=== PATIENT | female | born 1935 | race Hispanic/Latino ===

== ENCOUNTER 2017-06-15 14:32 | Emergency (ER) | payer MEDICARE ==
[2017-06-15 15:07] LABS: #Lymphocytes 0.8 thou/uL (1.20-3.40); #Monocytes 0.3 thou/uL (0.11-0.59); %Basophils 0.8 % (0.0-1.0); %Lymphocytes 19.6 % (21.0-51.0); %Monocytes 6.7 % (0.0-10.0); Hemoglobin 9.6 g/dL (12.0-16.0); Mean Corpuscular HGB CONC 32.1 g/dL (32.0-36.0); Mean Corpuscular Hemoglobin 32.1 pg (27.0-31.0); Mean Platelet Volume 7.7 fL (7.4-10.4); Platelet Count 177 thou/uL (130-400); RBC Distribution Width 15.1 % (11.5-14.5); Red Blood Cell (RBC) Count 2.99 mill/uL (4.20-5.40); White Blood Cell (WBC) Count 4.2 thou/uL (4.8-10.8)
--- NOTE | 2017-06-15 15:20 | RAD ---
PORTABLE CHEST: Comparison: 01-01-06, 02-27-10 FINDINGS: Portable upright chest demonstrates a left sided transvenous defibrillator unchanged in position. The re is cardiomegaly. Atherosclerosis of the aorta. Pulmonary vessels and hilum are normal. Small right sided pleural effusion with adjacent parenchymal changes. No left sided pleural effusion. There is h yperinflation. Adequate aeration in the upper lungs. No pneumothorax. IMPRESSION: 1. Pleural effusion and parenchymal changes in the right lung base. 2. Cardiomegaly. 3. Atherosclerosis. 4. Congestive heart failure. POS: [facility]
[2017-06-15 15:31] LABS: ALT (SGPT) 11 U/L (8-55); AST (SGOT) 16 U/L (5-34); Albumin 3.8 g/dL (3.4-4.8); Alkaline Phosphatase 60 U/L (40-150); Anion Gap 12 mmol/L (10-20); BUN (Urea Nitrogen) 22 mg/dL (9.8-20.1); Bilirubin, Total 0.4 mg/dL (0.2-1.2); CK (CPK) 46 U/L (29-168); Calc. Creatinine Clearance 0 mL/min (70-130); Calcium 8.3 mg/dL (7.8-10.44); Carbon Dioxide 21 mmol/L (23-31); Chloride 108 mmol/L (98-107); Estimated GFR-MDRD 49; Globulin 2.9 g/dL (2.4-3.5); Glucose 115 mg/dL (83-110); Lipase 65 U/L (8-78); Potassium 4.5 mmol/L (3.5-5.1); Protein, Total 6.7 g/dL (6.0-8.3); Sodium 136 mmol/L (136-145)
[2017-06-15 15:36] LABS: CKMB 1.6 ng/mL (0-6.6); Troponin I Less than 0.010 ng/mL (< 0.028)
[2017-06-15] MEDS ORDERED: Furosemide 20 MG/2 ML VIAL ONE (16:26)
== END 2017-06-15 16:31 | disposition home or self-care (01) ==
LOC: ERS 14:32
DX: I11.0 Hypertensive heart disease with heart failure (principal); I50.9 Heart failure, unspecified; E11.9 Type 2 diabetes mellitus without complications; E78.5 Hyperlipidemia, unspecified
CPT/HCPCS: 36415; 71045; 80048; 82553; 83690; 83880; 84484; 85025; 93005; 96374; J1940

== ENCOUNTER 2017-08-28 20:36 | Inpatient (IN) | payer MEDICARE ==
[2017-08-28 21:09] LABS: #Eosinphils 0.1 thou/uL (0.0-0.7); #Lymphocytes 0.4 thou/uL (1.20-3.40); #Monocytes 0.3 thou/uL (0.11-0.59); %Basophils 1.1 % (0.0-1.0); %Eosinophils 1.4 % (0.0-10.0); %Lymphocytes 11.7 % (21.0-51.0); %Neutrophils 77.8 % (42.0-75.0); Hemoglobin 9.5 g/dL (12.0-16.0); Mean Corpuscular HGB CONC 32.8 g/dL (32.0-36.0); Mean Corpuscular Hemoglobin 32.3 pg (27.0-31.0); Mean Corpuscular Volume 98.5 fl (81.0-99.0); Mean Platelet Volume 7.7 fL (7.4-10.4); Platelet Count 145 thou/uL (130-400); RBC Distribution Width 15.5 % (11.5-14.5); Red Blood Cell (RBC) Count 2.93 mill/uL (4.20-5.40); White Blood Cell (WBC) Count 3.8 thou/uL (4.8-10.8)
[2017-08-28 21:28] LABS: ALT (SGPT) 8 U/L (8-55); AST (SGOT) 18 U/L (5-34); Albumin 3.9 g/dL (3.4-4.8); Alkaline Phosphatase 67 U/L (40-150); Anion Gap 12 mmol/L (10-20); BUN (Urea Nitrogen) 34 mg/dL (9.8-20.1); Bilirubin, Total 0.4 mg/dL (0.2-1.2); Calc. Creatinine Clearance 0 mL/min (70-130); Calcium 9.7 mg/dL (7.8-10.44); Carbon Dioxide 21 mmol/L (23-31); Chloride 96 mmol/L (98-107); Estimated GFR-MDRD 30; Globulin 2.7 g/dL (2.4-3.5); Glucose 102 mg/dL (83-110); Lipase 61 U/L (8-78); Magnesium 1.2 mg/dL (1.6-2.6); Potassium 5.8 mmol/L (3.5-5.1); Protein, Total 6.6 g/dL (6.0-8.3); Sodium 123 mmol/L (136-145)
[2017-08-28] MEDS ORDERED: Magnesium Sulfate 2 GM/100 ML BAG ONE (22:06)
[2017-08-28] MEDS ORDERED: Furosemide 40 MG/4 ML VIAL ONE (22:06)
[2017-08-28] MEDS ORDERED: Furosemide 20 MG/2 ML VIAL ONE (22:06)
--- NOTE | 2017-08-28 23:00 | RAD ---
PORTABLE CHEST ONE VIEW: 08/28/17 at 10:14 p.m. HISTORY: Chest pain. FINDINGS: Comparison made with exam of 06/15/17. The heart is enlarged. The aorta is tortuous. A left sided pacemaker device remains in place. No loba r consolidation, pneumothorax, braulio pulmonary edema or pleural effusions are seen. IMPRESSION: No acute process. POS: [facility]
[2017-08-29 00:49] LABS: Troponin I 0.011 ng/mL (< 0.028)
[2017-08-29] MEDS ORDERED: Ondansetron ODT 4 MG TAB SL PRN (01:17)
[2017-08-29] MEDS ORDERED: Ondansetron HCl/PF 4 MG/2 ML Vial IVP PRN (01:17)
[2017-08-29] MEDS ORDERED: Acetaminophen 325 MG TAB PO PRN (03:20)
[2017-08-29 03:54] LABS: Anion Gap 11 mmol/L (10-20); BUN (Urea Nitrogen) 35 mg/dL (9.8-20.1); Calc. Creatinine Clearance 31 mL/min (70-130); Calcium 9.4 mg/dL (7.8-10.44); Carbon Dioxide 22 mmol/L (23-31); Chloride 99 mmol/L (98-107); Estimated GFR-MDRD 30; Glucose 109 mg/dL (83-110); Magnesium 1.7 mg/dL (1.6-2.6); Potassium 5.9 mmol/L (3.5-5.1); Sodium 126 mmol/L (136-145)
--- NOTE | 2017-08-29 05:00 | HP ---
PRIMARY CARE PHYSICIAN: No primary care physician. CHIEF COMPLAINT: Multiple chief complaints, shortness of breath/chest pain. HISTORY OF PRESENT ILLNESS: The patient is an 81-year-old female with a history of an enlarged heart , most likely heart failure with unknown EF, who presents to the hospital with complaints of multiple complaints. The patient states that she has been complaining of cough, generalized weakness, decrea sed appetite, all of this has been going on for the past 2-3 days. She also states that whenever she coughs, she starts having chest discomfort. The patient also complains of some nausea, but no vomit ing and also some increased swelling in her legs for the past few months. The patient denies any ort hopnea or PND. However, the patient states that she is unable to walk a very long distance before ge tting short of breath. The patient states that she has an appointment with cardiology on Wednesday i n regards to upgrading her AICD. The patient currently denies any chest pain, states only she gets a pain when she coughs. Denies any chest pain when she takes a deep breath. PAST MEDICAL HISTORY: 1. History of hypertension. 2. She has heart failure, most likely systolic. She does have an AICD. 3. History of diabetes. 4. History of hyperlipidemia. 5. High cholesterol. PAST SURGICAL HISTORY: 1. She has a lens implant in both eyes. 2. C-sections x4. 3. Left knee surgery x2. 4. Cholecystectomy. SOCIAL HISTORY: She denies any history of smoking, alcohol or drug use. ALLERGIES: She has got no known allergies. MEDICATIONS: She takes aspirin 81 mg daily; spironolactone 25 mg daily; Lasix 20 mg daily; carvedilo l 50 mg b.i.d.; alendronate 70 mg once a week; Januvia 10 mg daily; glimepiride 1 mg daily; levothyro xine 88 mcg daily; pravastatin 40 mg daily; Entresto, unknown dose, but daily; metformin 1000 mg p.o. daily; and iron 240 mg daily. REVIEW OF SYSTEMS: The following complete review of systems was negative, unless otherwise mentioned in the HPI or below: Constitutional: Weight loss or gain, ability to conduct usual activities. Sk in: Rash, itching. Eyes: Double vision, pain. ENT/Mouth: Nose bleeding, neck stiffness, pain, te nderness. Cardiovascular: Palpitations, dyspnea on exertion, orthopnea. Respiratory: Shortness of breath, wheezing, cough, hemoptysis, fever or night sweats. Gastrointestinal: Poor appetite, abdom inal pain, heartburn, nausea, vomiting, constipation, or diarrhea. Genitourinary: Urgency, frequenc y, dysuria, nocturia. Musculoskeletal: Pain, swelling. Neurologic/Psychiatric: Anxiety, depressio n. Allergy/Immunologic: Skin rash, bleeding tendency. All negative except for the ones mentioned i n the HPI. PHYSICAL EXAMINATION: VITAL SIGNS: Temperature of 97.7, respirations of 18, pulse of 68, blood pressure 111/60. Oxygen sa turations are 99% on room air. GENERAL: She is awake, alert, oriented x3, does not appear in any distress. CARDIOVASCULAR: S1, S2 present. No murmurs, rubs or gallops. LUNGS: Mild crackles to bilateral lower bases and mild wheezing present to the upper lobes. ABDOMEN: Soft, nontender. Bowel sounds are present x2. EXTREMITIES: She does have +1 lower extremity edema. LABORATORY DATA AND IMAGING: Lab peterson, she has WBCs of 3.8, hemoglobin of 9.5, hematocrit of 28.9, p latelets of 145. Chemistry: Sodium of 123, potassium of 5.8, chloride of 96, BUN of 34, creatinine of 1.67, magnesium of 1.2 and a BNP of 4176. Troponins x2 are negative. Chest x-ray indicates an en larged heart and mild pulmonary cephalization, very mild. EKG looks like inferior infarct and anteri or lateral infarct. No significant ST segment changes. ASSESSMENT AND PLAN: The patient is a very pleasant 81-year-old female admitted to the hospital with multiple complaints. 1. Congestive heart failure exacerbation, most likely systolic, acute. However, I do not have an ec hocardiogram to indicate the patient's ejection fraction. An echocardiogram has been ordered. We wi ll start the patient on Lasix 40 mg b.i.d. We will consult Cardiology. We will weigh patient daily. We will put her on a fluid restriction to 1500 mL. 2. Acute kidney injury could be secondary to cardiorenal syndrome. We will continue to monitor stri ct intake and output. 3. Hyperkalemia. We will recheck the patient's BMP. 4. Hyponatremia could be secondary to hypoosmolar versus syndrome of inappropriate antidiuretic horm one secretion. We will check a serum osmolality and continue to monitor. 5. Swelling in lower extremities, most likely secondary to heart failure. The patient has been star susie on diuretics. 6. Loss of appetite. We will get dietary to see the patient. Code status discussed. The patient states that if they are able to save me, they can go ahead and tr y whatever they can. We will consult Palliative Care for this. The patient's D-dimer was elevated; however, I do not feel this is secondary to any kind of pulmonary embolism. The patient does not have any pleuritic chest pain. Her chest pain, she said very clearl y, is only whenever she coughs. Does not have chest pain when she takes a deep breath. The patient is not hypoxic. We will not start any anticoagulation.
[2017-08-29 05:26] LABS: #Lymphocytes 0.6 thou/uL (1.20-3.40); #Monocytes 0.3 thou/uL (0.11-0.59); #Neutrophils 3.4 thou/uL (1.40-6.50); %Basophils 0.2 % (0.0-1.0); %Eosinophils 0.5 % (0.0-10.0); %Lymphocytes 13.7 % (21.0-51.0); %Monocytes 7.1 % (0.0-10.0); %Neutrophils 78.5 % (42.0-75.0); Hemoglobin 9.3 g/dL (12.0-16.0); Mean Corpuscular HGB CONC 33.8 g/dL (32.0-36.0); Mean Corpuscular Hemoglobin 33.4 pg (27.0-31.0); Mean Corpuscular Volume 98.8 fl (81.0-99.0); Mean Platelet Volume 8.3 fL (7.4-10.4); Platelet Count 140 thou/uL (130-400); RBC Distribution Width 15.7 % (11.5-14.5); Red Blood Cell (RBC) Count 2.77 mill/uL (4.20-5.40); White Blood Cell (WBC) Count 4.3 thou/uL (4.8-10.8)
[2017-08-29] MEDS ORDERED: Insulin Regular 300 UNITS/3 ML VIAL IVP SCH (06:15)
[2017-08-29] MEDS ORDERED: Dextrose 50% Abboject 50 ML SYRINGE SLOW IVP SCH (06:20)
[2017-08-29] MEDS ORDERED: Insulin Regular 300 UNITS/3 ML VIAL SC ONE (06:20)
[2017-08-29] MEDS: Furosemide 40 MG/4 ML VIAL SLOW IVP SCH ×2 (06:38→13:38)
[2017-08-29] MEDS: Levothyroxine Sodium 88 MCG TAB PO SCH (06:38)
[2017-08-29] MEDS ORDERED: Furosemide 40 MG/4 ML VIAL SLOW IVP SCH (09:00)
[2017-08-29] MEDS ORDERED: Spironolactone 25 MG TAB PO SCH (09:00)
[2017-08-29] MEDS: Carvedilol 25 MG TAB PO SCH ×2 (09:36→19:55)
[2017-08-29] MEDS: Heparin 5,000 UNITS/ML VIAL SC SCH ×3 (09:37→19:56)
[2017-08-29] MEDS: Docusate 100 MG CAP PO SCH ×2 (09:38→19:56)
[2017-08-29] MEDS: Famotidine 20 MG TAB PO SCH (09:38)
[2017-08-29] MEDS ORDERED: Albuterol Sulfate 2.5 mg/3 ml Neb NEB PRN (10:55)
--- NOTE | 2017-08-29 11:17 | PDOC.PN ---
- Subjective Encounter Start Date: 08/29/17 Encounter Start Time: 09:30 Subjective: c/o sob but better, no chest pain -: slept better last night, ate her breakfast -: multiple family members in room - Objective Resuscitation Status: Resuscitation Status FULL:Full Resuscitation MAR Reviewed: Yes Vital Signs & Weight: Vital Signs (12 hours) Temp Pulse Resp Pulse Ox 08/29/17 08:37 97.4 F L 61 16 99 Weight Weight 158 lb 1.6 oz I&O: 08/28/17 08/29/17 08/30/17 06:59 06:59 06:59 Intake Total 120 Output Total 525 Balance -405 Result Diagrams: 08/29/17 00:13 08/29/17 03:29 Phys Exam - Physical Examination HEENT: PERRLA, moist MMs Neck: no JVD, supple Respiratory: no rhonchi, wheezing present rales+ Cardiovascular: RRR, no significant murmur Gastrointestinal: soft, non-tender, positive bowel sounds Musculoskeletal: pulses present, edema present Neurological: non-focal, moves all 4 limbs Psychiatric: normal affect, A&O x 3 Dx/Plan (1) CHF exacerbation Code(s): I50.9 - HEART FAILURE, UNSPECIFIED Status: Acute Qualifiers: Heart failure type: systolic Qualified Code(s): I50.23 - Acute on chronic systolic (congestive) heart failure (2) CAD (coronary artery disease) Code(s): I25.10 - ATHSCL HEART DISEASE OF [place] CORONARY ARTERY W/O ANG PCTRS Status: Chronic Qualifiers: [place] vs. transplanted heart: [place] heart Associated angina: without angina (3) HTN (hypertension) Code(s): I10 - ESSENTIAL (PRIMARY) HYPERTENSION Status: Chronic Qualifiers: Hypertension type: essential hypertension Qualified Code(s): I10 - Essential (primary) hypertension (4) CLAIRE (acute kidney injury) Code(s): N17.9 - ACUTE KIDNEY FAILURE, UNSPECIFIED Status: Acute (5) Dyslipidemia Code(s): E78.5 - HYPERLIPIDEMIA, UNSPECIFIED Status: Chronic (6) Chronic anemia Code(s): D64.9 - ANEMIA, UNSPECIFIED Status: Chronic (7) DM type 2 (diabetes mellitus, type 2) Status: Acute Qualifiers: Diabetes mellitus terminal operations supervisor insulin use: without longterm use Diabetes mellitus complication status: with unspecified complications Qualified Code(s) : E11.8 - Type 2 diabetes mellitus with unspecified complications - Plan is on lasix iv q12h -: alb nebs q6h prn -: await echo -: had elective aicd placement on at [facility] per family, will cons -: -ult . On coreg, asp, lipitor and glimepride * . To amb in hallway as tolerated. Have given updates to family at bedside. Review of Systems - Medications/Allergies Allergies/Adverse Reactions: Allergies Allergy/AdvReac Type Severity Reaction Status Date / Time No Known Allergies Allergy Verified 08/29/17 02:00 Medications: Current Medications Acetaminophen (Tylenol) 650 mg PO Q4H PRN PRN Reason: Headache/Fever or Pain Albuterol Sulfate (Ventolin) 2.5 mg NEB [id number] PRN PRN Reason: Wheezing Aspirin (Aspirin Chewable) 81 mg PO DAILY [facility] Last Admin: 08/29/17 09:36 Dose: 81 mg Atorvastatin Calcium (Lipitor) 10 mg PO HS [facility] Carvedilol (Coreg) 25 mg PO BID [facility] Last Admin: 08/29/17 09:36 Dose: 25 mg Docusate Sodium (Colace) 100 mg PO BID [facility] Last Admin: 08/29/17 09:38 Dose: Not Given Famotidine (Pepcid) 20 mg PO DAILY [facility] Last Admin: 08/29/17 09:38 Dose: 20 mg Furosemide (Lasix) 40 mg SLOW IVP 0600,1400 [facility] Last Admin: 08/29/17 06:38 Dose: 40 mg Heparin Sodium (Porcine) (Heparin) 5,000 units SC TID [facility] Last Admin: 08/29/17 09:37 Dose: 5,000 units Levothyroxine Sodium (Synthroid) 88 mcg PO 0600 [facility] Last Admin: 08/29/17 06:38 Dose: 88 mcg Ondansetron HCl (Zofran) 4 mg IVP Q6H PRN PRN Reason: Nausea/Vomiting Stop: 08/29/17 13:00 Ondansetron HCl (Zofran Odt) 4 mg SL Q6H PRN PRN Reason: Nausea/Vomiting Stop: 08/29/17 13:00 Sodium Chloride (Flush - Normal Saline) 10 ml IVF PRN PRN PRN Reason: Saline Flush Stop: 08/29/17 13:00
[2017-08-29 14:17] LABS: Anion Gap 14 mmol/L (10-20); BUN (Urea Nitrogen) 36 mg/dL (9.8-20.1); Calc. Creatinine Clearance 32 mL/min (70-130); Calcium 8.9 mg/dL (7.8-10.44); Carbon Dioxide 17 mmol/L (23-31); Chloride 100 mmol/L (98-107); Estimated GFR-MDRD 31; Glucose 111 mg/dL (83-110); Potassium 5.2 mmol/L (3.5-5.1); Sodium 126 mmol/L (136-145)
[2017-08-29] MEDS ORDERED: Atorvastatin Calcium 10 MG TAB PO SCH (21:00)
--- NOTE | 2017-08-30 04:06 | CON ---
DATE OF CONSULTATION: 08/29/2017 HISTORY OF PRESENT ILLNESS: Mario Deleon is an 81-year-old [place] female followed for ma ny years by Dr. Mancuso. She has severe nonischemic cardiomyopathy with mild coronary artery diseas e in the past. She has had progressive worsening of her heart failure and has started to develop a w ider QRS complex. She states that on 09/01, she was to undergo upgrade to a biventricular defibrilla tor in [place]. She has had increased cough for 2-3 days. She has chest discomfort associated with c oughing. She has peripheral edema. PAST MEDICAL HISTORY: Remarkable for hypertension, diabetes, hyperlipidemia, and severe chronic syst olic heart failure. PAST SURGICAL HISTORY: Lens implantation in both eyes, left knee surgery x2, cholecystectomy, and fo ur C-sections. MEDICATIONS: At home include aspirin 81 daily, carvedilol 25 b.i.d., Estrace 2 tablets every 7 days, Fergon two tablets daily, Laura Allergy, furosemide 20 mg daily (this was recently reduced from 40 mg daily on 08/03/2017 followup), levothyroxine 88 mcg daily, metformin 1000 q.a.m., pravastatin 40 q.p.m., Entresto 49/51 b.i.d., Januvia 100 q.a.m., spironolactone 25 daily, CoQ10 daily. ALLERGIES: None. SOCIAL HISTORY: She does not smoke or drink. REVIEW OF SYSTEMS: Ten-point review of systems, otherwise unremarkable. PHYSICAL EXAMINATION: VITAL SIGNS: Blood pressure 123/55, pulse of 62. HEENT: PERRL. NECK: Supple. CHEST: Reveals crackles at the bases. CARDIOVASCULAR: S1, S2 normal without any S3 or S4. There is a 2/6 holosystolic murmur along the le ft sternal border. ABDOMEN: Obese. Normal bowel sounds, no tenderness. EXTREMITIES: Revealed 1-2+ edema. NEUROLOGIC: Grossly intact. LABORATORY DATA AND X-RAY FINDINGS: EKG reveals normal sinus rhythm with first-degree AV block and p robable left bundle branch block. Hemoglobin 9.3, hematocrit 27.4, white count 4300, platelets 148,0 00. Sodium 126, potassium 5.2, chloride 100, carbon dioxide 17, BUN 36, creatinine 1.58. Cardiac en zymes are unremarkable. IMPRESSION: 1. Severe nonischemic dilated cardiomyopathy with ejection fraction at this time of 10%-15%. 2. Chronic kidney disease. 3. Mild coronary artery disease. 4. Hypertension. 5. Hyperlipidemia. 6. Diabetes. 7. Status post ICD placement. This was a dual chamber device, apparently she is to undergo upgradin g to a biventricular device. RECOMMENDATIONS: The patient will be treated with intravenous diuretics in the hopes of achieving be tter diuresis. Certainly, her long-term prognosis is poor. However, hopefully her left ventricular function will stabilize with biventricular pacing.
[2017-08-30] MEDS: Furosemide 40 MG/4 ML VIAL SLOW IVP SCH (05:24)
[2017-08-30] MEDS: Levothyroxine Sodium 88 MCG TAB PO SCH (05:24)
[2017-08-30 05:36] LABS: #Eosinphils 0.1 thou/uL (0.0-0.7); #Lymphocytes 0.7 thou/uL (1.20-3.40); #Monocytes 0.4 thou/uL (0.11-0.59); #Neutrophils 3.2 thou/uL (1.40-6.50); %Basophils 0.4 % (0.0-1.0); %Eosinophils 1.3 % (0.0-10.0); %Lymphocytes 16.5 % (21.0-51.0); %Monocytes 9.9 % (0.0-10.0); Hemoglobin 8.4 g/dL (12.0-16.0); Mean Corpuscular HGB CONC 33.5 g/dL (32.0-36.0); Mean Corpuscular Hemoglobin 32.8 pg (27.0-31.0); Mean Corpuscular Volume 97.7 fl (81.0-99.0); Mean Platelet Volume 7.9 fL (7.4-10.4); Platelet Count 146 thou/uL (130-400); RBC Distribution Width 15.5 % (11.5-14.5); Red Blood Cell (RBC) Count 2.56 mill/uL (4.20-5.40); White Blood Cell (WBC) Count 4.4 thou/uL (4.8-10.8)
[2017-08-30 06:10] LABS: ALT (SGPT) 9 U/L (8-55); AST (SGOT) 18 U/L (5-34); Albumin 3.4 g/dL (3.4-4.8); Alkaline Phosphatase 58 U/L (40-150); Anion Gap 13 mmol/L (10-20); BUN (Urea Nitrogen) 37 mg/dL (9.8-20.1); Bilirubin, Total 0.4 mg/dL (0.2-1.2); Calc. Creatinine Clearance 30 mL/min (70-130); Calcium 9.2 mg/dL (7.8-10.44); Carbon Dioxide 19 mmol/L (23-31); Chloride 97 mmol/L (98-107); Estimated GFR-MDRD 28; Globulin 2.5 g/dL (2.4-3.5); Glucose 89 mg/dL (83-110); Potassium 5.1 mmol/L (3.5-5.1); Protein, Total 5.9 g/dL (6.0-8.3); Sodium 124 mmol/L (136-145)
[2017-08-30] MEDS: Docusate 100 MG CAP PO SCH (09:30)
[2017-08-30] MEDS: Carvedilol 25 MG TAB PO SCH (09:30)
[2017-08-30] MEDS: Famotidine 20 MG TAB PO SCH (09:30)
[2017-08-30] MEDS: Heparin 5,000 UNITS/ML VIAL SC SCH ×2 (09:31→16:00)
[2017-08-30] MEDS ORDERED: Albuterol Sulfate 2.5 mg/3 ml Neb ONE (10:20)
[2017-08-30 12:02] VITALS: BMI 32.9
--- NOTE | 2017-08-30 12:42 | PDOC.PN ---
- Subjective Encounter Start Date: 08/30/17 Encounter Start Time: 09:00 Subjective: slept better last night -: sob is better, no chest pain or palp -: is amb in room, family at bedside - Objective Resuscitation Status: Resuscitation Status FULL:Full Resuscitation MAR Reviewed: Yes Vital Signs & Weight: Vital Signs (12 hours) Temp Pulse Pulse Resp BP BP BP 08/30/17 11:35 97.7 F 16 08/30/17 10:25 08/30/17 10:23 72 20 08/30/17 10:05 69 133/63 115/53 L 08/30/17 09:26 97.7 F 71 16 138/65 08/30/17 04:39 97.9 F 67 20 127/58 L BP Pulse Ox 08/30/17 11:35 119/58 L 100 08/30/17 10:25 99 08/30/17 10:23 99 08/30/17 10:05 08/30/17 09:26 96 08/30/17 04:39 95 Weight Admit Weight 158 lb Weight 163 lb 1.6 oz I&O: 08/29/17 08/30/17 08/31/17 06:59 06:59 06:59 Intake Total 120 Output Total 525 1000 400 Balance -405 -1000 -400 Result Diagrams: 08/30/17 04:58 08/30/17 04:58 Additional Labs: Accuchecks 08/30/17 08/30/17 08/29/17 10:57 06:17 20:42 POC Glucose 152 H 98 102 08/29/17 17:19 POC Glucose 127 H Phys Exam - Physical Examination HEENT: PERRLA, moist MMs Neck: no JVD, supple Respiratory: no wheezing rales++ Cardiovascular: RRR, no significant murmur Gastrointestinal: soft, non-tender, positive bowel sounds Musculoskeletal: pulses present, edema present Neurological: non-focal, moves all 4 limbs Psychiatric: normal affect, A&O x 3 Dx/Plan (1) CHF exacerbation Code(s): I50.9 - HEART FAILURE, UNSPECIFIED Status: Acute Qualifiers: Heart failure type: systolic Qualified Code(s): I50.23 - Acute on chronic systolic (congestive) heart failure Comment: ef of 15% (2) CAD (coronary artery disease) Code(s): I25.10 - ATHSCL HEART DISEASE OF [place] CORONARY ARTERY W/O ANG PCTRS Status: Chronic Qualifiers: [place] vs. transplanted heart: [place] heart Associated angina: without angina (3) HTN (hypertension) Code(s): I10 - ESSENTIAL (PRIMARY) HYPERTENSION Status: Chronic Qualifiers: Hypertension type: essential hypertension Qualified Code(s): I10 - Essential (primary) hypertension (4) CLAIRE (acute kidney injury) Code(s): N17.9 - ACUTE KIDNEY FAILURE, UNSPECIFIED Status: Acute Comment: resolving (5) Dyslipidemia Code(s): E78.5 - HYPERLIPIDEMIA, UNSPECIFIED Status: Chronic (6) Chronic anemia Code(s): D64.9 - ANEMIA, UNSPECIFIED Status: Chronic (7) DM type 2 (diabetes mellitus, type 2) Status: Chronic Qualifiers: Diabetes mellitus assisted insulin use: without intermodal owner operator truck driver use Diabetes mellitus complication status: with unspecified complications Qualified Code(s) : E11.8 - Type 2 diabetes mellitus with unspecified complications - Plan diuresing well, has been switched to oral lasix by -: d/w , pt requires a lead to be removed and upgrade to biventricular -: this cant be done here, she needs to keep her appt on in [place] -: on asp, coreg and lipitor -: dc plan per cardio advice, still has hyponatremia due to chf-asymptomatic * . Review of Systems - Medications/Allergies Allergies/Adverse Reactions: Allergies Allergy/AdvReac Type Severity Reaction Status Date / Time No Known Allergies Allergy Unverified 08/29/17 15:43 Medications: Current Medications Acetaminophen (Tylenol) 650 mg PO Q4H PRN PRN Reason: Headache/Fever or Pain Last Admin: 08/30/17 04:19 Dose: 650 mg Albuterol Sulfate (Ventolin) 2.5 mg NEB [id number] [facility] Aspirin (Aspirin Chewable) 81 mg PO DAILY [facility] Last Admin: 08/30/17 09:30 Dose: 81 mg Atorvastatin Calcium (Lipitor) 10 mg PO HS [facility] Last Admin: 08/29/17 19:55 Dose: 10 mg Carvedilol (Coreg) 25 mg PO BID [facility] Last Admin: 08/30/17 09:30 Dose: 25 mg Docusate Sodium (Colace) 100 mg PO BID [facility] Last Admin: 08/30/17 09:30 Dose: 100 mg Famotidine (Pepcid) 20 mg PO DAILY [facility] Last Admin: 08/30/17 09:30 Dose: 20 mg Furosemide (Lasix) 40 mg PO DAILY[facility] Heparin Sodium (Porcine) (Heparin) 5,000 units SC TID [facility] Last Admin: 08/30/17 09:31 Dose: 5,000 units Levothyroxine Sodium (Synthroid) 88 mcg PO 0600 [facility] Last Admin: 08/30/17 05:24 Dose: 88 mcg
[2017-08-30] MEDS ORDERED: Albuterol Sulfate 2.5 mg/3 ml Neb NEB SCH (13:00)
[2017-08-30 16:43] VITALS: BP 114/56; TEMP 97.6
[2017-08-31] MEDS ORDERED: Furosemide 40 MG TAB PO SCH (07:30)
--- NOTE | 2017-08-31 12:30 | DIS ---
DATE OF ADMISSION: 08/28/2017 DATE OF DISCHARGE: 08/30/2017 DISCHARGE DISPOSITION: To home. PRIMARY DISCHARGE DIAGNOSES: Acute on chronic congestive heart failure exacerbation with systolic dy sfunction and ejection fraction of around 15%. SECONDARY DISCHARGE DIAGNOSES: Coronary artery disease, hypertension, acute kidney injury, dyslipide delio, chronic anemia, and diabetes mellitus type 2. PROCEDURES DONE DURING HOSPITALIZATION: Echo with 2D Doppler done showed EF of 10%-15%, moderate ochoa ral regurgitation, severe tricuspid regurgitation, moderate pulmonary regurgitation was seen on the e cho. Chest x-ray done showed cardiomegaly with mild pulmonary vascular congestion. Hemoglobin and h ematocrit 8.4 and 25, platelet count 146, MCV is 97, BUN 37, and creatinine 1.7 on the day of dischar ge. Albumin is 3.4. Had BNP of 4,176. Troponin x2 was negative. INPATIENT CONSULTS: Dr. Dillard/Jamee for Cardiology. DISCHARGE MEDICATIONS: Aspirin 81 mg p.o. daily, Coreg 25 mg twice daily, estradiol 0.5 mg 2 tabs on ce a week, ferrous sulfate 240 mg 2 tabs daily, fish oil 2000 mg p.o. daily, Lasix 20 mg daily, glime piride 1 mg p.o. daily, levothyroxine 88 mcg p.o. daily, metformin 1000 mg p.o. q.a.m., omeprazole 20 mg daily, Pravachol 40 mg p.o. q.p.m., Entresto 49/51 mg p.o. 1 tab twice daily, Januvia 100 mg p.o. daily, spironolactone 25 mg daily, and CoQ10 200 mg daily. ALLERGIES: No known drug allergies. DISCHARGE PLAN: Patient needs to follow up with converter supervisor in [place] for upgrading her AICD to a biventricular pacer and likely removal of the lead. She also needs follow up with Dr. Mancuso as advised and primary care physician in 1 week. BRIEF COURSE DURING HOSPITALIZATION: Patient initially got admitted on the with complaints of s hortness of breath and chest pain. She has known history of systolic dysfunction with EF of around 1 5%. Patient was admitted for CHF exacerbation with systolic dysfunction. She has had gentle diuresi s done keeping in mind her acute kidney injury. She has had consultation with Dr. Dillard and Dr. Lucio joshi for Cardiology. She has done remarkably well during her stay here. The patient is optimized on heart failure treatment and needs follow up with her primary care physician in 1 week. Also, she has a followup appointment which needs to keep with converter supervisor at [facility] in [place] for upgrading her AICD to biventricular pacer and likely removal of the lead in 1 week from now, likely . She has been cleared by Dr. Mancuso for discharge. Please see a face to face documentation on [facility] for the day of discharge.
== END 2017-08-30 17:11 | disposition home or self-care (01) | DRG 291 ==
LOC: ERS 20:36 → 2NO 23:47
PROVIDERS: ADMIT Internal Medicine; ATTEND Internal Medicine
DX: I13.0 Hypertensive heart and chronic kidney disease with heart failure and stage 1 through stage 4 chronic kidney disease, or unspecified chronic kidney disease (principal); I50.23 Acute on chronic systolic (congestive) heart failure; N17.9 Acute kidney failure, unspecified; E87.5 Hyperkalemia; D64.9 Anemia, unspecified; E87.1 Hypo-osmolality and hyponatremia; E11.9 Type 2 diabetes mellitus without complications; E66.9 Obesity, unspecified; E78.2 Mixed hyperlipidemia; I25.10 Atherosclerotic heart disease of native coronary artery without angina pectoris; Z95.810 Presence of automatic (implantable) cardiac defibrillator; Z79.82 Long term (current) use of aspirin; Z79.899 Other long term (current) drug therapy; Z79.84 Long term (current) use of oral hypoglycemic drugs; N18.9 Chronic kidney disease, unspecified
CPT/HCPCS: 36415; 36416; 71045; 80048; 80053; 82553; 83690; 83735; 83880; 83930; 84443; 84484; 85025; 85379; 93005; 93010; 93306; 94640; 94760; 96365; 96375; G8978-GP-CJ; G8979-GP-CJ; G8980-GP-CJ; J1644; J1815; J1940; J3475; J7611; J7620

== ENCOUNTER 2017-09-09 17:16 | Observation (INO) | payer MEDICARE ==
[2017-09-09] MEDS ORDERED: Dextrose 50% Abboject 50 ML SYRINGE ONE (18:16)
[2017-09-09 18:18] LABS: #Eosinphils 0.1 thou/uL (0.0-0.7); #Lymphocytes 0.7 thou/uL (1.20-3.40); #Monocytes 0.4 thou/uL (0.11-0.59); #Neutrophils 5.1 thou/uL (1.40-6.50); %Basophils 0.3 % (0.0-1.0); %Eosinophils 1.1 % (0.0-10.0); %Lymphocytes 11.4 % (21.0-51.0); %Monocytes 6.6 % (0.0-10.0); %Neutrophils 80.7 % (42.0-75.0); Hemoglobin 8.3 g/dL (12.0-16.0); Mean Corpuscular HGB CONC 32.5 g/dL (32.0-36.0); Mean Corpuscular Hemoglobin 32.3 pg (27.0-31.0); Mean Corpuscular Volume 99.5 fl (81.0-99.0); Mean Platelet Volume 7.2 fL (7.4-10.4); Platelet Count 181 thou/uL (130-400); RBC Distribution Width 15.3 % (11.5-14.5); Red Blood Cell (RBC) Count 2.55 mill/uL (4.20-5.40); White Blood Cell (WBC) Count 6.3 thou/uL (4.8-10.8)
[2017-09-09 18:34] LABS: ALT (SGPT) 8 U/L (8-55); AST (SGOT) 17 U/L (5-34); Albumin 3.4 g/dL (3.4-4.8); Alkaline Phosphatase 76 U/L (40-150); Anion Gap 10 mmol/L (10-20); BUN (Urea Nitrogen) 28 mg/dL (9.8-20.1); Bilirubin, Total 0.4 mg/dL (0.2-1.2); CK (CPK) 23 U/L (29-168); Calc. Creatinine Clearance 0 mL/min (70-130); Calcium 9.3 mg/dL (7.8-10.44); Carbon Dioxide 22 mmol/L (23-31); Chloride 105 mmol/L (98-107); Estimated GFR-MDRD 49; Globulin 3.1 g/dL (2.4-3.5); Potassium 4.4 mmol/L (3.5-5.1); Protein, Total 6.5 g/dL (6.0-8.3); Sodium 133 mmol/L (136-145)
[2017-09-09 18:38] LABS: Glucose 40 mg/dL (83-110)
[2017-09-09 18:40] LABS: Troponin I 0.019 ng/mL (< 0.028)
--- NOTE | 2017-09-09 18:48 | RAD ---
PORTABLE CHEST 09/09/17 HISTORY: Cough. COMPARISON: 08/28/17 study. Heart size is markedly enlarged with an internal defibrillator device present. There are atherosclero tic changes of the aorta. The lungs are clear of infiltrates. IMPRESSION: Marked cardiomegaly. No signs of failure. POS: [facility]
[2017-09-09] MEDS: Dextrose 10% in Water 1,000 ML IV SCH (21:08)
[2017-09-09] MEDS ORDERED: Ondansetron HCl/PF 4 MG/2 ML Vial IVP PRN (22:24)
[2017-09-09] MEDS ORDERED: Ondansetron ODT 4 MG TAB SL PRN (22:24)
[2017-09-09] MEDS ORDERED: Acetaminophen 325 MG TAB PO PRN (22:24)
[2017-09-10 02:48] VITALS: BMI 29.2
[2017-09-10] MEDS ORDERED: Dextrose 50% Abboject 50 ML SYRINGE SLOW IVP PRN (06:00)
[2017-09-10] MEDS ORDERED: Acetaminophen 325 MG TAB PO PRN (06:00)
[2017-09-10] MEDS ORDERED: Milk Of Magnesia 30 ML UDCUP PO PRN (06:00)
[2017-09-10] MEDS ORDERED: Calcium Carbonate 500 MG ChewTAB PO PRN (06:00)
[2017-09-10] MEDS ORDERED: Ondansetron HCl/PF 4 MG/2 ML Vial IVP PRN (06:00)
[2017-09-10] MEDS ORDERED: Ondansetron ODT 4 MG TAB PO PRN (06:00)
[2017-09-10] MEDS ORDERED: Dextrose 5% in Water 1,000 ML IV PRN (06:00)
--- NOTE | 2017-09-10 06:17 | HP ---
DATE OF ADMISSION: 09/09/2017 PRIMARY CARE PHYSICIAN: Marcellus Chinchilla MD CHIEF COMPLAINT: Low blood sugar. HISTORY OF PRESENT ILLNESS: The patient is an 81-year-old female with recent AICD upgrade and diabet es mellitus type 2, presented to the emergency room with persistent hypoglycemia. Patient is current ly on metformin 1000 mg daily, glimepiride 1 mg daily, Januvia 100 mg daily. The family stated that they had problems keeping a blood sugar up. Over the last one week, the patient has not been eating and drinking well. No fever, chills, nausea, vomiting, diarrhea, constipation, night sweats, or chasity ise reported. In the emergency room, her vital signs showed temperature 98.8, respiration of 16, pulse rate of 78, blood pressure of 121/55 with O2 saturation of 94% on room air. Her initial blood glucose was in 40s . She was started on D10 drip. The family also reported that patient has been intermittently coughi ng over the last 1 week or so. The cough is productive of thick whitish phlegm. No dysuria, hematur ia, or urgency reported. PAST MEDICAL HISTORY: 1. Chronic systolic heart failure secondary to nonischemic cardiomyopathy with recent AICD upgrade a t [facility]. 2. Diabetes mellitus type 2. 3. Hypertension. 4. Hyperlipidemia. PAST SURGICAL HISTORY: 1. Cardiac surgery. 2. Left knee surgery x2. 3. Cholecystectomy. 4. section. 5. AICD upgrade last week at [facility]. ALLERGIES: No known drug allergies. CURRENT HOME MEDICATIONS: As discussed above. The patient is unable to recall all other home medica tions. SOCIAL HISTORY: Patient currently lives at home with her family. She makes her own decision with th e help of her family. No smoking, alcohol, or drug use. FAMILY HISTORY: Negative for premature coronary artery disease. REVIEW OF SYSTEMS: The following complete review of systems was negative, unless otherwise mentioned in the HPI or below: Constitutional: Weight loss or gain, ability to conduct usual activities. Sk in: Rash, itching. Eyes: Double vision, pain. ENT/Mouth: Nose bleeding, neck stiffness, pain, te nderness. Cardiovascular: Palpitations, dyspnea on exertion, orthopnea. Respiratory: Shortness of breath, wheezing, cough, hemoptysis, fever or night sweats. Gastrointestinal: Poor appetite, abdom inal pain, heartburn, nausea, vomiting, constipation, or diarrhea. Genitourinary: Urgency, frequenc y, dysuria, nocturia. Musculoskeletal: Pain, swelling. Neurologic/Psychiatric: Anxiety, depressio n. Allergy/Immunologic: Skin rash, bleeding tendency. PHYSICAL EXAMINATION: VITAL SIGNS: As discussed above. GENERAL: An 81-year-old female in no apparent distress, feels better. HEENT: Head: Atraumatic, normocephalic. Sclerae are anicteric. Moist mucous membrane. No oral le prasanth. NECK: Supple. No JVD appreciated. No carotid bruit. LUNGS: Clear to auscultation bilaterally. No wheezing, rales, or rhonchi. HEART: S1, S2 present. Regular rate and rhythm. No murmur, rubs, or gallops appreciated. ABDOMEN: Soft. Bowel sounds present. EXTREMITIES: No edema or calf tenderness. NEUROLOGIC: Grossly nonfocal. Moves all four extremities. PSYCHIATRY: Alert, awake, oriented x3. SKIN: Warm and dry. LYMPH NODES: No palpable lymph nodes in the neck. PERIPHERAL VASCULAR: Radial pulses palpable bilaterally. MUSCULOSKELETAL: No joint swelling or tenderness. LABORATORY FINDINGS: CBC showed WBC 6.3 with hemoglobin 8.3, hematocrit 25.4, platelet count 181,000 . Chemistry showed sodium 133, potassium 4.4, chloride 105, bicarbonate 22, BUN 28, creatinine 1.07. Cardiac enzymes were normal. Chest x-ray by my review was negative for infiltrate. EKG by my i ew showed paced rhythm. IMPRESSION: 1. Hypoglycemia, probably secondary to antidiabetic medications. The patient is currently on metfor min, glimepiride, and Januvia. Please note that after the recent AICD upgrade, the patient has not b een eating and drinking well. We will hold these medications for now. We will try to wean of D10 dr devine. The patient was counseled on symptoms of hypoglycemia. 2. Hypothyroidism. We will resume levothyroxine. 3. Gastroesophageal reflux disease. We will continue proton pump inhibitors. 4. Hypertension. We will resume her home antihypertensive regimen including carvedilol once dosages are confirmed. 5. Hyperlipidemia. Continue statins once dose confirmed. 6. Chronic systolic heart failure, ejection fraction 10-15% range, secondary to nonischemic cardiomy opathy, appears to be compensated. 7. Chronic kidney disease, stage 3. 8. Hyponatremia. 9. Chronic anemia. Further workup per PCP. Plan of care was discussed with the patient and the family in detail, they stated understanding. Urinalysis will be sent to rule out urinary tract infection.
[2017-09-10] MEDS ORDERED: Levothyroxine Sodium 88 MCG TAB PO SCH (06:30)
[2017-09-10] MEDS: Dextrose 10% in Water 1,000 ML IV SCH ×2 (06:36→06:37)
[2017-09-10 07:53] LABS: Bilirubin Negative (Negative); Blood, Urine Negative (Negative); Clarity CLEAR (Clear); Glucose, Urine (Dipstick) Negative (Negative); Leukocyte Negative (Negative); Nitrite Negative (Negative); Protein, Urine (Dipstick) Negative (Neg-Trace); Specific Gravity, Urine 1.016 (1.002-1.036); pH, Urine 5.5 (5.0-9.0)
[2017-09-10 07:56] LABS: Bacteria/HPF None Seen HPF (None Seen); Hyaline Casts/LPF 4-6 HYALINE CAST LPF (0-3 Hyaline); Pathc Cast-AUWi Flag 0.87 (0-2.49); WBC/HPF 0-3 HPF (0-3)
[2017-09-10] MEDS: Famotidine 20 MG TAB PO SCH (08:32)
[2017-09-10] MEDS: Carvedilol 25 MG TAB PO SCH ×2 (08:32→16:33)
[2017-09-10] MEDS: Aspirin 81 mg Enteric Coated Tablet PO SCH (08:33)
[2017-09-10] MEDS: Spironolactone 25 MG TAB PO SCH (08:33)
[2017-09-10] MEDS: Docusate 100 MG CAP PO SCH ×2 (08:34→20:02)
--- NOTE | 2017-09-10 17:48 | PDOC.PN ---
- Subjective Encounter Start Date: 09/10/17 Encounter Start Time: 17:46 Subjective: 1lert, feels ok - Objective Resuscitation Status: Resuscitation Status FULL:Full Resuscitation MAR Reviewed: Yes Vital Signs & Weight: Vital Signs (12 hours) Temp Pulse Resp BP Pulse Ox 09/10/17 13:00 98.3 F 69 18 108/62 97 09/10/17 08:00 98.3 F 68 16 09/10/17 07:56 98.3 F 68 16 120/71 97 Weight Weight 149 lb 7.574 oz I&O: 09/09/17 09/10/17 09/11/17 06:59 06:59 06:59 Intake Total 850 1900 Output Total 350 Balance 850 1550 Result Diagrams: 09/09/17 18:05 09/09/17 18:05 Additional Labs: Accuchecks 09/10/17 09/10/17 09/10/17 16:15 15:40 11:46 POC Glucose 130 H 156 H 150 H 09/10/17 09/09/17 09/09/17 05:56 21:55 20:50 POC Glucose 107 110 154 H Phys Exam - Physical Examination Neck: no JVD Respiratory: clear to auscultation bilateral Cardiovascular: RRR, no significant murmur Gastrointestinal: soft, non-tender, positive bowel sounds Musculoskeletal: no edema Dx/Plan (1) Hypoglycemia associated with type 2 diabetes mellitus Code(s): E11.649 - TYPE 2 DIABETES MELLITUS WITH HYPOGLYCEMIA WITHOUT COMA Status: Acute (2) Dyslipidemia Code(s): E78.5 - HYPERLIPIDEMIA, UNSPECIFIED Status: Chronic (3) HTN (hypertension) Code(s): I10 - ESSENTIAL (PRIMARY) HYPERTENSION Status: Chronic Qualifiers: Hypertension type: essential hypertension (4) Cardiomyopathy Code(s): I42.9 - CARDIOMYOPATHY, UNSPECIFIED Status: Acute Comment: non- ischemic - Plan cont off oral hypoglcemics -: accu still only 130 on diet and iv glucose -: monitor overnite, discharge in am off amaryl to see funeral sales manager soon * .
[2017-09-10] MEDS ORDERED: Atorvastatin Calcium 10 MG TAB PO SCH (21:00)
[2017-09-11 05:23] LABS: Anion Gap 9 mmol/L (10-20); BUN (Urea Nitrogen) 32 mg/dL (9.8-20.1); Calc. Creatinine Clearance 33 mL/min (70-130); Calcium 8.4 mg/dL (7.8-10.44); Carbon Dioxide 23 mmol/L (23-31); Chloride 101 mmol/L (98-107); Estimated GFR-MDRD 35; Glucose 87 mg/dL (83-110); Potassium 4.8 mmol/L (3.5-5.1); Sodium 128 mmol/L (136-145)
[2017-09-11] MEDS ORDERED: Levothyroxine Sodium 88 MCG TAB PO SCH (06:00)
[2017-09-11] MEDS: Dextrose 10% in Water 1,000 ML IV SCH (07:07)
[2017-09-11] MEDS: Docusate 100 MG CAP PO SCH (08:57)
[2017-09-11] MEDS: Carvedilol 25 MG TAB PO SCH (08:57)
[2017-09-11] MEDS: Spironolactone 25 MG TAB PO SCH (08:57)
[2017-09-11] MEDS: Aspirin 81 mg Enteric Coated Tablet PO SCH (08:57)
[2017-09-11] MEDS: Famotidine 20 MG TAB PO SCH (08:57)
--- NOTE | 2017-09-11 10:37 | DIS ---
DATE OF ADMISSION: 09/09/2017 DATE OF DISCHARGE: 09/11/2017 PRIMARY CARE PROVIDER: Dr. Chinchilla at [facility]. DIAGNOSES: Hypoglycemia, diabetes mellitus type 2, history of heart failure, unspecified, hypertensi on, dyslipidemia. DISCHARGE MEDICATIONS: Her Amaryl and Januvia have been held. She is discharged on her metformin 10 00 once a day, Coenzyme Q10 a day, spironolactone 25 mg a day, levothyroxine 88 mcg a day, omeprazole 20 mg a day, pravastatin 40 mg a day, Lasix 20 mg a day, Coreg 50 mg twice a day, estradiol 2 tabs e very 7 days, aspirin 81 mg a day, alendronate 70 mg every 7 days. ALLERGIES: No known drug allergies. PENDING AT TIME OF DISCHARGE: Nothing. CODE STATUS: FULL. HOSPITAL COURSE: The patient admitted to the hospital after several days of persistent hypoglycemia. She was treated with high dose IV blood sugars. Her blood sugars have been since admission, 40, 57 , 212, 154, 110, 107, 150, 156, 130, 144 and today 99 on no medications. Her sodium was 133, BUN 28, creatinine 1.07. CBC: White count 6.3, hemoglobin 8.3, platelet count 181. The patient has been v mimi desirous of going home. The family is anxious to take her home. No consultations, no procedures . She has been discharged to follow up with her PCP in 1 week. She has been instructed not to take the oral hypoglycemic, Januvia and Amaryl.
[2017-09-11 13:21] VITALS: BP 112/66; TEMP 97.6
--- NOTE | 2017-09-18 18:14 | EKG ---
Test Reason : Blood Pressure : / mmHG Vent. Rate : 078 BPM Atrial Rate : 078 BPM P-R Int : 128 ms QRS Dur : 152 ms QT Int : 460 ms P-R-T Axes : -27 148 -10 degrees QTc Int : 524 ms Atrial-sensed ventricular-paced rhythm Abnormal ECG Confirmed by JULIAN PURI MD ([id number]), advertising editor SKYLER DYSON ([id number]) on 09/18/2017 6:13:41 PM Referred By: Confirmed By:JULIAN PURI MD
== END 2017-09-11 13:29 | disposition home or self-care (01) ==
LOC: ERS 17:16 → T4-B 20:02
PROVIDERS: ADMIT Internal Medicine; ATTEND Internal Medicine
DX: E11.649 Type 2 diabetes mellitus with hypoglycemia without coma (principal); E11.22 Type 2 diabetes mellitus with diabetic chronic kidney disease; I13.0 Hypertensive heart and chronic kidney disease with heart failure and stage 1 through stage 4 chronic kidney disease, or unspecified chronic kidney disease; I50.22 Chronic systolic (congestive) heart failure; N18.3 Chronic kidney disease, stage 3 (moderate); E78.5 Hyperlipidemia, unspecified; I42.9 Cardiomyopathy, unspecified; E03.9 Hypothyroidism, unspecified; D64.9 Anemia, unspecified; E87.1 Hypo-osmolality and hyponatremia; K21.9 Gastro-esophageal reflux disease without esophagitis; Z79.84 Long term (current) use of oral hypoglycemic drugs; Z79.899 Other long term (current) drug therapy; Z95.810 Presence of automatic (implantable) cardiac defibrillator
CPT/HCPCS: 71045; 80048; 80053; 81001; 82550; 82553; 82962 ×3; 84484; 85025; 93005; 96365; 96366 ×2; 96375; 97139 ×2; 99285; G0378; 36415; 36416

== ENCOUNTER 2018-05-05 21:51 | Emergency (ER) | payer MEDICARE ==
[~2018-05-05 21:51] MED LIST: ISOVUE-370 76%-LOCM 1 ML ONE
[2018-05-05 22:45] LABS: #Eosinphils 0.1 thou/uL (0.0-0.7); #Lymphocytes 1.1 thou/uL (1.20-3.40); #Monocytes 0.4 thou/uL (0.11-0.59); #Neutrophils 3.9 thou/uL (1.40-6.50); %Basophils 0.8 % (0.0-1.0); %Eosinophils 1.4 % (0.0-10.0); %Lymphocytes 20.7 % (21.0-51.0); %Monocytes 6.7 % (0.0-10.0); %Neutrophils 70.4 % (42.0-75.0); Hemoglobin 8.4 g/dL (12.0-16.0); Mean Corpuscular HGB CONC 32.9 g/dL (32.0-36.0); Mean Corpuscular Hemoglobin 32.7 pg (27.0-31.0); Mean Corpuscular Volume 99.2 fL (78.0-98.0); Mean Platelet Volume 7.5 fL (7.4-10.4); Platelet Count 146 thou/uL (130-400); RBC Distribution Width 14.6 % (11.5-14.5); Red Blood Cell (RBC) Count 2.58 mill/uL (4.20-5.40); White Blood Cell (WBC) Count 5.5 thou/uL (4.8-10.8)
[2018-05-05] MEDS ORDERED: Acetaminophen 500 MG TAB ONE (22:45)
[2018-05-05 22:50] LABS: INR-International Normal Ratio 1.3; Prothrombin Time 16.7 SEC (12.0-14.7)
[2018-05-05 22:51] LABS: PTT 36.1 SEC (22.9-36.1)
[2018-05-05 23:05] LABS: ALT (SGPT) 9 U/L (8-55); AST (SGOT) 15 U/L (5-34); Albumin 3.9 g/dL (3.4-4.8); Alkaline Phosphatase 78 U/L (40-150); Anion Gap 15 mmol/L (10-20); BUN (Urea Nitrogen) 63 mg/dL (9.8-20.1); Bilirubin, Total 0.4 mg/dL (0.2-1.2); Calc. Creatinine Clearance 0 mL/min (70-130); Carbon Dioxide 17 mmol/L (23-31); Chloride 112 mmol/L (98-107); Estimated GFR-MDRD 25; Globulin 3.5 g/dL (2.4-3.5); Glucose 103 mg/dL (83-110); Potassium 5.8 mmol/L (3.5-5.1); Protein, Total 7.4 g/dL (6.0-8.3); Sodium 138 mmol/L (136-145)
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
[2018-05-06] MEDS ORDERED: Lidocaine 1% w/Epinephrine 1:100K 20 ML VIAL ONE (02:13)
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
== END 2018-05-06 02:55 | disposition home or self-care (01) ==
LOC: ERS 21:51
DX: S42.411A Displaced simple supracondylar fracture without intercondylar fracture of right humerus, initial encounter for closed fracture (principal); S01.411A Laceration without foreign body of right cheek and temporomandibular area, initial encounter; I12.9 Hypertensive chronic kidney disease with stage 1 through stage 4 chronic kidney disease, or unspecified chronic kidney disease; E11.22 Type 2 diabetes mellitus with diabetic chronic kidney disease; N18.9 Chronic kidney disease, unspecified; E78.5 Hyperlipidemia, unspecified; Z79.899 Other long term (current) drug therapy; Z79.82 Long term (current) use of aspirin; Z79.84 Long term (current) use of oral hypoglycemic drugs; W01.118A Fall on same level from slipping, tripping and stumbling with subsequent striking against other sharp object, initial encounter
CPT/HCPCS: 12011; 29105; 36415; 70498; 80053; 85025; 85610; 85730; 93005; J2001

== ENCOUNTER 2018-11-18 09:33 | Inpatient (IN) | payer MEDICARE ==
[2018-11-18 10:09] LABS: #Eosinphils 0.1 thou/uL (0.0-0.7); #Lymphocytes 0.9 thou/uL (1.20-3.40); #Monocytes 0.4 thou/uL (0.11-0.59); #Neutrophils 3.8 thou/uL (1.40-6.50); %Basophils 0.2 % (0.0-1.0); %Eosinophils 1.7 % (0.0-10.0); %Lymphocytes 16.9 % (21.0-51.0); %Monocytes 7.1 % (0.0-10.0); %Neutrophils 74.1 % (42.0-75.0); Mean Corpuscular HGB CONC 31.9 g/dL (32.0-36.0); Mean Corpuscular Hemoglobin 32.2 pg (27.0-31.0); Mean Platelet Volume 8.2 fL (7.4-10.4); Platelet Count 159 thou/uL (130-400); RBC Distribution Width 16.4 % (11.5-14.5); Red Blood Cell (RBC) Count 3.09 mill/uL (4.20-5.40); White Blood Cell (WBC) Count 5.2 thou/uL (4.8-10.8)
[2018-11-18 10:40] LABS: ALT (SGPT) 18 U/L (8-55); AST (SGOT) 20 U/L (5-34); Albumin 3.9 g/dL (3.4-4.8); Alkaline Phosphatase 158 U/L (40-150); Anion Gap 15 mmol/L (10-20); BUN (Urea Nitrogen) 55 mg/dL (9.8-20.1); Bilirubin, Total 0.4 mg/dL (0.2-1.2); Calc. Creatinine Clearance 0 mL/min (70-130); Calcium 8.9 mg/dL (7.8-10.44); Carbon Dioxide 24 mmol/L (23-31); Chloride 101 mmol/L (98-107); Estimated GFR-MDRD 26; Globulin 3.4 g/dL (2.4-3.5); Glucose 106 mg/dL (83-110); Protein, Total 7.3 g/dL (6.0-8.3); Sodium 133 mmol/L (136-145)
[2018-11-18 10:44] LABS: Potassium 6.8 mmol/L (3.5-5.1)
[2018-11-18] MEDS ORDERED: Insulin Regular 300 UNITS/3 ML VIAL ONE (11:52)
[2018-11-18] MEDS ORDERED: Dextrose 50% Abboject 50 ML SYRINGE ONE (11:52)
[2018-11-18] MEDS ORDERED: Sodium Bicarb 50 MEQ/50 ML VIAL ONE (11:53)
[2018-11-18] MEDS ORDERED: Carvedilol 25 MG TAB PO SCH (14:00)
[2018-11-18] MEDS ORDERED: Ondansetron PF 4 MG/2 ML Vial IVP PRN (16:08)
[2018-11-18] MEDS ORDERED: Acetaminophen 325 MG TAB PO PRN (16:08)
[2018-11-18] MEDS ORDERED: Ondansetron ODT 4 MG TAB SL PRN (16:08)
[2018-11-18] MEDS ORDERED: Sodium Chloride 0.9% 1,000 ML IV SCH (16:08)
[2018-11-18 16:44] VITALS: BMI 27.6
[2018-11-18] MEDS ORDERED: Dextrose 5% in Water 1,000 ML IV PRN (17:53)
[2018-11-18] MEDS ORDERED: Dextrose 50% Abboject 50 ML SYRINGE SLOW IVP PRN (17:53)
--- NOTE | 2018-11-18 17:59 | HP ---
CHIEF COMPLAINT: Abnormal labs. HISTORY OF PRESENT ILLNESS: This patient is an 82-year-old female with a history of a nonischemic cardiomyopathy and chronic kidney disease and a relatively recent diagnosis of idiopathic cirrhosis. The patient has been followed by Dr. Mancuso for her cardiomyopathy and he has been monitoring her labs. Today, the patient received a call regarding her labs and was told she needed to come to the emergency department because her potassium levels were high. These numbers were repeated and confirmed in the emergency department. The patient has had no significant change in her medications recently. She believes she has been off the spironolactone for 3 months, although her daughter is not so sure. Her diet is only changed to include a number of melons consumed over the past week or so. She does continue to take Lasix every other day. She is completely asymptomatic, she said she feels quite well and was unaware there were any problems whatsoever. REVIEW OF SYSTEMS: All systems reviewed. Pertinent positives and negatives noted in the history of present illness. PAST MEDICAL HISTORY: Notable for the recent diagnosis of cirrhosis, etiology is apparently not known. She did have one thoracentesis, which was large volume in nature. She has done well since that time. She also has a nonunion right elbow fracture, could not be treated surgically because of her comorbidities. She has chronic systolic heart failure secondary to nonischemic cardiomyopathy with an EF of 10% to 15%. She has diabetes mellitus type 2, hypertension, and hyperlipidemia. PAST SURGICAL HISTORY: AICD/pacemaker, cardiac surgery per record, left knee surgery x2, cholecystectomy, C-sections. FAMILY HISTORY: Negative for heart disease. SOCIAL HISTORY: The patient is a nonsmoker, nondrinker, and nondrug user. She still lives at home with her family. She is full code and her daughter would be her surrogate decision maker should that become necessary. ALLERGIES: NONE. CURRENT MEDICATIONS: have not been fully elucidated, that appear to include; 1. Alendronate. 2. Carvedilol. 3. Estrace. 4. B12. 5. Fergon. 6. Laura. 7. Lasix. 8. Levothyroxine. 9. Omeprazole. 10. Pravastatin. 11. Possibly metformin. PHYSICAL EXAMINATION: VITAL SIGNS: Temperature 97.6, pulse 60, respirations 17, O2 saturation 97% on room air. BP 112/66, up to 169/68. GENERAL APPEARANCE: Age-appropriate female, who is awake and alert, extremely pleasant and cooperative. HEENT: PERRL. No OP lesions. NECK: Supple and symmetric. HEART: Has a substantial holosystolic murmur heard throughout the precordium, which is low-pitched and rumbling. LUNGS: Clear to auscultation bilaterally with good chest wall expansion and air exchange. ABDOMEN: Soft, nontender, and nondistended. Positive bowel sounds. No masses. No organomegaly. EXTREMITIES: No cyanosis, clubbing, or edema. She has an orthotic on the left foot with some elevation and appears to have some difficulty in flexing the left knee fully. NEUROLOGIC: The patient has normal cognition and appears to have normal spontaneous movement of her extremities. PSYCH: Normal affect and behavior. SKIN: Normal turgor. LABORATORY DATA: White count 5.2, hemoglobin 10.0, platelets 159. Sodium 133, potassium 6.8, chloride 101, CO2 is 24, BUN 55, creatinine is 1.87, GFR is 26, glucose 106, AST 20, ALT 19, alkaline phosphatase 158. Troponin less than 0.01. Albumin is 3.9. Digoxin is 0.30. IMPRESSION AND PLAN: 1. Hyperkalemia. Etiology is likely related to her chronic kidney disease and possibly some dietary indiscretion. The patient is fairly certain she is not taking spironolactone right now, but her daughter is not sure that is the case. They are working to try to clarify that. I did attempt to reach out to Dr. Mancuso's office for some clarification, but their office was unfortunately closed. She has received sodium bicarbonate, dextrose and insulin, calcium gluconate, and 15 g of Kayexalate in the emergency department. The plan is to recheck her potassium this evening around 9 p.m. Should she still have a critically elevated level, she can have more dextrose and insulin. 2. Chronic kidney disease, stage 4. The patient appears to have gone from stage 3 to stage 4 sometime around August of 2017 with her average GFR just below 30. The patient has not established with a ict support and test engineers. Given her kidney disease and the related hyperkalemia, we will consult Nephrology. She does not appear to have a significant acidosis at this time and is not volume overloaded, however, concerning that she may have some worsening renal function related to the potassium. 3. Cardiomyopathy. The patient has nonischemic cardiomyopathy with an ejection fraction of 10% to 15%. She is followed by Dr. Mancuso and she actually is quite stable in regard to this. We will continue the patient's beta evan and Lasix. 4. Anemia. The patient has chronic anemia, apparently has recently received IV iron and a transfusion. Her last hemoglobin was 8.3 in August. Typically, she appears to run in the low 8 range. 5. Diabetes mellitus. Given the patient's renal function, she should likely not be taking metformin and would be of more benefit to be on sliding scale insulin for now. 6. Apparent hypothyroidism. We will continue levothyroxine. Job ID: [id number] [facility]
[2018-11-18 21:23] LABS: Anion Gap 13 mmol/L (10-20); BUN (Urea Nitrogen) 50 mg/dL (9.8-20.1); Calc. Creatinine Clearance 24 mL/min (70-130); Calcium 9.1 mg/dL (7.8-10.44); Carbon Dioxide 25 mmol/L (23-31); Chloride 103 mmol/L (98-107); Estimated GFR-MDRD 27; Glucose 117 mg/dL (83-110); Potassium 5.4 mmol/L (3.5-5.1); Sodium 136 mmol/L (136-145)
--- NOTE | 2018-11-19 00:36 | CON ---
DATE OF CONSULTATION: HISTORY OF PRESENT ILLNESS: Ms. Deleon is an 82-year-old female, who was admitted for hyperkalemia. She was noted to have a potassium level of 6.6 mg%. Creatinine was also noted to be abnormal at 1.87. We are now being consulted for this acute kidney injury/chronic renal failure/hyperkalemia. The patient has been receiving Kayexalate. REVIEW OF SYSTEMS: No chest pain or shortness of breath. Positive for abdominal fullness. No leg edema. No nausea. No vomiting. No diarrhea. Positive for joint pains. No headache. No diplopia. No syncopal episode. No productive cough. No fever or chills. No hematochezia. No melena. No hematemesis. MEDICATIONS: 1. Aspirin 81 mg tablet once daily. 2. Furosemide 240 mg once daily. 3. Carvedilol 25 mg b.i.d. 4. Pravastatin 40 mg tablet at bedtime. 5. Fish oil 1000 mg daily. 6. Calcium citrate 1000 mg once daily. 7. Coenzyme Q10 mg once daily. 8. Estrace 0.5 mg 2 times a week. 9. Laura 180 mg once daily. 10. Omeprazole 180 mg daily. 11. BiDil 20/37.5 one tablet t.i.d. 12. Digoxin 125 mcg-1/2 tablet daily. 13. Ibuprofen 1 tablet at bedtime. PAST MEDICAL HISTORY: Cardiomyopathy, type 2 diabetes mellitus, CHF, hyperlipidemia and history of cirrhosis/ascites. PAST SURGICAL HISTORY: Status post cardiac cath, status post AICD, status post pacemaker placement, status post section, status post left knee surgery, status post cholecystectomy, status post bilateral cataract surgery, status post paracentesis. SOCIAL HISTORY: The patient single, lives with her daughter and 7 children, lives in [place]. No history of smoking. No alcohol intake. No IV drug abuse. Sedentary lifestyle. ALLERGIES: NO KNOWN DRUG ALLERGIES. TRAUMA: None. IMMUNIZATION: Up-to-date. HOSPITALIZATIONS: Please see past medical history. FAMILY HISTORY: No family history of ESRD. PHYSICAL EXAMINATION: VITAL SIGNS: Blood pressure is 169/68, heart rate 68, respiratory rate 17, temperature 97.6, pulse ox 97 percent. GENERAL: Noted to be awake, alert, comfortable, not in distress. SKIN: Adequate turgor. HEENT: Pinkish conjunctivae, anicteric sclerae. NECK: No neck mass. No carotid bruits. No JVD. CHEST: No deformities. LUNGS: Clear breath sounds. HEART: Normal sinus rhythm. No murmur, no gallops or rubs. ABDOMEN: Globular, soft, nontender. No masses. EXTREMITIES: No edema. LABORATORY DATA: Laboratories of November 18, 2018; white count 5.2, hemoglobin 10, hematocrit 31.2. Sodium 133, potassium 6.8, chloride 101, carbon dioxide 24, BUN 55, creatinine 1.87, glucose 106, calcium 8.9, AST 20, ALT 18, albumin 3.9. Troponin I less than 0.010. Platelet count is noted at 159,000. Digoxin level 0.3. ASSESSMENT AND PLAN: Hyperkalemia-this could be drug-induced. The only drug I feel could be contributing to the hyperkalemia is that the patient is taking regular ibuprofen, which is a nonsteroidal anti-inflammatory drug, which can cause also some degree of hyperkalemia. However, I am unclear, if this patient is still taking spironolactone or any potassium replacement. At one time, it was documented she was taking spironolactone for her chronic ascites/cirrhosis. The plan is to continue to give her Kayexalate. I will continue with the dosing, but we will give her a one time dose of 30 g of Kayexalate with lactulose 30 g also. I do not feel there is any indication for any dialytic intervention with this patient. Chronic renal failure-unclear etiology-hemodynamically mediated dysfunction, remains since the patient has significant history of cardiomyopathy. Overall agree with current management. We will recheck basic metabolic panel. Job ID: [id number]
[2018-11-19 05:59] LABS: Anion Gap 11 mmol/L (10-20); BUN (Urea Nitrogen) 45 mg/dL (9.8-20.1); Calc. Creatinine Clearance 26 mL/min (70-130); Calcium 8.8 mg/dL (7.8-10.44); Carbon Dioxide 27 mmol/L (23-31); Chloride 104 mmol/L (98-107); Estimated GFR-MDRD 30; Glucose 80 mg/dL (83-110); Potassium 4.7 mmol/L (3.5-5.1); Sodium 137 mmol/L (136-145)
--- NOTE | 2018-11-19 10:56 | PRG ---
DATE OF SERVICE: 11/19/2018 SUBJECTIVE: Ms. Deleon is an 82-year-old female who was seen for hyperkalemia and acute kidney injury. She was managed conservatively for hyperkalemia. She was given Kayexalate with lactulose. This morning potassium is now normal. Creatinine is also slightly improved with volume repletion. No other complaints today. She denies any chest pain or shortness of breath. OBJECTIVE: VITAL SIGNS: Blood pressure is 152/66, heart rate 66, respiratory rate 16, temperature 97.4, and pulse ox 97%. GENERAL: Noted to be awake, alert, comfortable, not in distress. SKIN: Adequate turgor. HEENT: She has pinkish conjunctivae. Anicteric sclerae. NECK: No neck mass. No carotid bruits. No JVD. CHEST: No deformities. LUNGS: Clear breath sounds. No wheezing. No crackles. HEART: Normal sinus rhythm. No murmur. No gallops. No rubs. ABDOMEN: Globular, soft, nontender. No masses. EXTREMITIES: No edema. No deformities. MEDICATIONS: Medications of November 19, 2018, was reviewed. LABORATORY DATA: Laboratories of November 19, 2018; sodium 137, potassium 4.7, chloride 104, carbon dioxide 27, BUN 45, creatinine 1.64, calcium 8.8. On November 18, 2018; white count 5.2, hemoglobin 10. ASSESSMENT AND PLAN: 1. Acute kidney injury - superimposed hemodynamically-mediated renal dysfunction. Slightly improved with gentle volume repletion and discontinuation of her ibuprofen. She was counseled not to use any ibuprofen. 2. Hyperkalemia. Potassium is now within normal. She is status post Kayexalate. Continue low-potassium diet. I advised the patient to avoid any NSAIDs since these can also precipitate hyperkalemia. Overall, agree with current management. Job ID: [id number]
[2018-11-19] MEDS ORDERED: Carvedilol 6.25 MG TAB PO SCH (11:00)
[2018-11-19] MEDS ORDERED: ISOSORB DINIT PO SCH (11:00)
[2018-11-19] MEDS ORDERED: Cyanocobalamin (Vitamin B-12) 1,000 MCG TAB PO SCH (11:00)
[2018-11-19] MEDS ORDERED: Digoxin 0.125 MG TAB PO SCH (11:00)
[2018-11-19] MEDS ORDERED: HYDRALAZINE HCL PO SCH (11:00)
[2018-11-19] MEDS ORDERED: Furosemide 20 MG TAB PO SCH (11:00)
[2018-11-19] MEDS ORDERED: Aspirin 81 mg Enteric Coated Tablet PO SCH (11:00)
[2018-11-19] MEDS ORDERED: Levothyroxine Sodium 88 MCG TAB PO SCH (11:00)
[2018-11-19] MEDS ORDERED: hydrALAZINE 25 MG TAB PO SCH (11:15)
[2018-11-19] MEDS ORDERED: Isosorbide Dinitrate 20 MG TAB PO SCH (11:15)
[2018-11-19 15:14] VITALS: BP 147/67; TEMP 97.6
== END 2018-11-19 15:03 | disposition home or self-care (01) | DRG 641 ==
LOC: ERS 09:33 → 2NO 12:50
PROVIDERS: ADMIT Internal Medicine; ATTEND Internal Medicine
DX: E87.5 Hyperkalemia (principal); N17.9 Acute kidney failure, unspecified; N18.4 Chronic kidney disease, stage 4 (severe); I42.9 Cardiomyopathy, unspecified; I13.0 Hypertensive heart and chronic kidney disease with heart failure and stage 1 through stage 4 chronic kidney disease, or unspecified chronic kidney disease; I50.22 Chronic systolic (congestive) heart failure; Z96.1 Presence of intraocular lens; E78.5 Hyperlipidemia, unspecified; E11.22 Type 2 diabetes mellitus with diabetic chronic kidney disease; Z90.49 Acquired absence of other specified parts of digestive tract; Z95.810 Presence of automatic (implantable) cardiac defibrillator; Z95.0 Presence of cardiac pacemaker
CPT/HCPCS: 36415; 36416; 80048; 80162; 84484; 85025; 93005; 93306; 96365; 96375; J0610; J1815; J7070

== ENCOUNTER 2021-10-02 20:52 | Emergency (ER) | payer MEDICARE ==
[2021-10-02 21:49] LABS: #Eosinphils 0.1 thou/uL (0.0-0.7); #Lymphocytes 1.9 thou/uL (1.20-3.40); #Monocytes 0.4 thou/uL (0.11-0.59); #Neutrophils 3.7 thou/uL (1.40-6.50); %Basophils 0.7 % (0.0-1.0); %Eosinophils 1.8 % (0.0-10.0); %Lymphocytes 30.7 % (21.0-51.0); %Monocytes 6.7 % (0.0-10.0); %Neutrophils 60.1 % (42.0-75.0); Hemoglobin 12.7 g/dL (12.0-16.0); Mean Corpuscular HGB CONC 35.7 g/dL (32.0-36.0); Mean Corpuscular Hemoglobin 33.5 pg (27.0-31.0); Mean Corpuscular Volume 93.8 fL (78.0-98.0); Mean Platelet Volume 7.3 fL (7.4-10.4); Platelet Count 213 thou/uL (130-400); RBC Distribution Width 12.6 % (11.5-14.5); Red Blood Cell (RBC) Count 3.78 mill/uL (4.20-5.40); White Blood Cell (WBC) Count 6.2 thou/uL (4.8-10.8)
[2021-10-02 21:57] LABS: ALT (SGPT) 20 U/L (8-55); AST (SGOT) 19 U/L (5-34); Albumin 4.1 g/dL (3.4-4.8); Alkaline Phosphatase 58 U/L (40-110); Anion Gap 18 mmol/L (10-20); BUN (Urea Nitrogen) 67 mg/dL (9.8-20.1); Bilirubin, Total 0.3 mg/dL (0.2-1.2); Calc. Creatinine Clearance 0 mL/min (70-130); Carbon Dioxide 22 mmol/L (23-31); Chloride 101 mmol/L (98-107); Globulin 4.2 g/dL (2.4-3.5); Glucose 224 mg/dL (83-110); Potassium 4.6 mmol/L (3.5-5.1); Protein, Total 8.3 g/dL (5.8-8.1); Sodium 136 mmol/L (136-145)
== END 2021-10-02 22:44 | disposition left against medical advice (07) ==
LOC: ERS 20:52
DX: Z53.21 Procedure and treatment not carried out due to patient leaving prior to being seen by health care provider (principal)
CPT/HCPCS: 36415; 36416; 80053; 85025; 93005

== ENCOUNTER 2022-05-19 18:51 | Inpatient (IN) | payer MEDICARE, OTHER ==
[2022-05-19 19:44] LABS: #Eosinphils 0.1 thou/uL (0.0-0.7); #Lymphocytes 1.5 thou/uL (1.20-3.40); #Monocytes 0.4 thou/uL (0.11-0.59); #Neutrophils 5.6 thou/uL (1.40-6.50); %Basophils 0.1 % (0.0-1.0); %Eosinophils 1.9 % (0.0-10.0); %Lymphocytes 19.2 % (21.0-51.0); %Monocytes 4.9 % (0.0-10.0); Hemoglobin 12.7 g/dL (12.0-16.0); Mean Corpuscular HGB CONC 34.8 g/dL (32.0-36.0); Mean Corpuscular Hemoglobin 33.3 pg (27.0-31.0); Mean Corpuscular Volume 95.5 fl (78.0-98.0); Mean Platelet Volume 7.7 fL (7.4-10.4); Platelet Count 232 10x3/uL (130-400); RBC Distribution Width 12.4 % (11.5-14.5); Red Blood Cell (RBC) Count 3.81 mill/uL (4.20-5.40); White Blood Cell (WBC) Count 7.6 10x3/uL (4.8-10.8)
[2022-05-19 20:08] LABS: ALT (SGPT) 9 U/L (8-55); AST (SGOT) 12 U/L (5-34); Alkaline Phosphatase 52 U/L (40-110); Anion Gap 16 mmol/L (10-20); BUN (Urea Nitrogen) 33 mg/dL (9.8-20.1); Bilirubin, Total 0.3 mg/dL (0.2-1.2); Calc. Creatinine Clearance 0 mL/min (70-130); Calcium 8.9 mg/dL (7.8-10.44); Carbon Dioxide 25 mmol/L (23-31); Chloride 99 mmol/L (98-107); Estimated GFR 30; Globulin 4.2 g/dL (2.4-3.5); Glucose 239 mg/dL (83-110); Potassium 4.2 mmol/L (3.5-5.1); Protein, Total 8.2 g/dL (5.8-8.1); Sodium 136 mmol/L (136-145)
[2022-05-19 20:31] LABS: CKMB 1.4 ng/mL (0-6.6)
[2022-05-19] MEDS ORDERED: Nitroglycerin 2% Ointment 1 INCH/1 GM Packet ONE (20:52)
[2022-05-19] MEDS ORDERED: hydrALAZINE 20 MG/ML VIAL ONE (20:52)
[2022-05-19] MEDS ORDERED: Meclizine HCl 25 MG TAB ONE (20:52)
[2022-05-19] MEDS ORDERED: Acetaminophen 500 MG TAB ONE (21:54)
[2022-05-19 22:28] LABS: Bacteria/HPF None Seen HPF (None Seen); Bilirubin Negative (Negative); Blood, Urine Negative (Negative); Clarity Clear (Clear); Glucose, Urine (Dipstick) Greater than 1000 mg/dL (Negative); Ketone, Urine Negative (Negative); Leukocyte Negative Leu/uL (Negative); Nitrite Negative (Negative); Protein, Urine (Dipstick) 100 mg/dL (Neg-Trace); RBC/HPF 0-3 HPF (0-3); Specific Gravity, Urine 1.014 (1.002-1.036); Squamous Epithelial 0-3 HPF (0-3); Urobilinogen Normal mg/dL (Less than 2); WBC/HPF 0-3 HPF (0-3)
[2022-05-19 23:00] LABS: Troponin I 0.033 ng/mL (< 0.028)
[2022-05-19] MEDS ORDERED: Ondansetron PF 4 MG/2 ML Vial IVP PRN (23:02)
[2022-05-19] MEDS ORDERED: Ondansetron ODT 4 MG TAB PO PRN (23:02)
[2022-05-19] MEDS ORDERED: hydrALAZINE 20 MG/ML VIAL SLOW IVP PRN (23:02)
[2022-05-19] MEDS ORDERED: Dextrose 50% Abboject 50 ML SYRINGE SLOW IVP PRN (23:30)
[2022-05-19] MEDS ORDERED: HumaLOG 300 UNITS/3 ML VIAL SC PRN (23:30)
[2022-05-19] MEDS ORDERED: Dextrose 5% in Water 1,000 ML IV PRN (23:30)
[2022-05-20 05:51] LABS: #Eosinphils 0.1 thou/uL (0.0-0.7); #Lymphocytes 1.8 thou/uL (1.20-3.40); #Monocytes 0.4 thou/uL (0.11-0.59); #Neutrophils 4.2 thou/uL (1.40-6.50); %Basophils 0.4 % (0.0-1.0); %Eosinophils 1.8 % (0.0-10.0); %Lymphocytes 27.8 % (21.0-51.0); %Monocytes 5.9 % (0.0-10.0); %Neutrophils 64.2 % (42.0-75.0); Hemoglobin 10.8 g/dL (12.0-16.0); Mean Corpuscular HGB CONC 34.9 g/dL (32.0-36.0); Mean Corpuscular Hemoglobin 33.7 pg (27.0-31.0); Mean Corpuscular Volume 96.6 fl (78.0-98.0); Mean Platelet Volume 7.7 fL (7.4-10.4); Platelet Count 184 10x3/uL (130-400); RBC Distribution Width 12.3 % (11.5-14.5); Red Blood Cell (RBC) Count 3.19 mill/uL (4.20-5.40); White Blood Cell (WBC) Count 6.6 10x3/uL (4.8-10.8)
[2022-05-20 06:18] LABS: Anion Gap 15 mmol/L (10-20); BUN (Urea Nitrogen) 31 mg/dL (9.8-20.1); Calc. Creatinine Clearance 0 mL/min (70-130); Calcium 8.4 mg/dL (7.8-10.44); Carbon Dioxide 22 mmol/L (23-31); Cardiac Risk 4.9 (Less than 4.5); Chloride 104 mmol/L (98-107); Cholesterol 131 mg/dl (< 200 Desired); Estimated GFR 34; Glucose 177 mg/dL (83-110); HDL Cholesterol 27 mg/dL (>60 Neg Risk); LDL Cholesterol, Calculated 32 mg/dL; Potassium 3.8 mmol/L (3.5-5.1); Sodium 137 mmol/L (136-145); Triglycerides 358 mg/dL (Less than 150)
[2022-05-20 06:22] LABS: Troponin I 0.026 ng/mL (< 0.028)
[2022-05-20] MEDS ORDERED: Amlodipine 10 MG TAB PO SCH (07:30)
[2022-05-20] MEDS ORDERED: Acetaminophen 325 MG TAB ONE (08:46)
[2022-05-20] MEDS ORDERED: Amlodipine 5 MG TAB ONE (08:46)
[2022-05-20] MEDS: Carvedilol 6.25 MG TAB PO SCH ×2 (08:52→20:37)
[2022-05-20] MEDS: Acetaminophen 325 MG TAB PO PRN ×2 (08:52→20:36)
[2022-05-20] MEDS: HumaLOG 300 UNITS/3 ML VIAL SC PRN (17:34)
[2022-05-20 17:43] VITALS: BMI 25.8
[2022-05-20] MEDS ORDERED: Furosemide 40 MG TAB PO SCH (18:30)
[2022-05-20] MEDS: Icosapent Ethyl 1 GM CAPSULE PO SCH (20:36)
[2022-05-20] MEDS: Atorvastatin Calcium 10 MG TAB PO SCH (20:36)
[2022-05-21] MEDS: Levothyroxine Sodium 88 MCG TAB PO SCH (05:34)
[2022-05-21] MEDS ORDERED: Amlodipine 10 MG TAB PO SCH (09:00)
[2022-05-21] MEDS: Acetaminophen 325 MG TAB PO PRN (09:16)
[2022-05-21] MEDS: Digoxin 0.125 MG TAB PO SCH (09:17)
[2022-05-21] MEDS: Empagliflozin 10 MG TAB PO SCH (09:21)
[2022-05-21] MEDS: Ferrous Gluconate 324 MG TAB PO SCH (09:21)
[2022-05-21] MEDS: Carvedilol 6.25 MG TAB PO SCH ×2 (09:21→21:53)
[2022-05-21] MEDS: Aspirin 81 mg Enteric Coated Tablet PO SCH (09:22)
[2022-05-21] MEDS: Icosapent Ethyl 1 GM CAPSULE PO SCH ×2 (09:22→21:54)
[2022-05-21] MEDS: ISOSORBIDE DINITRATE PO SCH ×3 (09:22→21:54)
[2022-05-21] MEDS: HYDRALAZINE HCL PO SCH ×3 (09:22→21:54)
[2022-05-21] MEDS: HumaLOG 300 UNITS/3 ML VIAL SC PRN ×2 (11:51→17:18)
[2022-05-21] MEDS: Atorvastatin Calcium 10 MG TAB PO SCH (21:53)
[2022-05-22 04:02] LABS: Hemoglobin A1c 8.7 % (4.0-6.0)
[2022-05-22 04:11] LABS: #Eosinphils 0.2 thou/uL (0.0-0.7); #Lymphocytes 1.8 thou/uL (1.20-3.40); #Monocytes 0.5 thou/uL (0.11-0.59); #Neutrophils 3.9 thou/uL (1.40-6.50); %Basophils 0.3 % (0.0-1.0); %Eosinophils 2.5 % (0.0-10.0); %Monocytes 7.4 % (0.0-10.0); %Neutrophils 61.9 % (42.0-75.0); Hemoglobin 10.9 g/dL (12.0-16.0); Mean Corpuscular HGB CONC 34.7 g/dL (32.0-36.0); Mean Corpuscular Hemoglobin 33.4 pg (27.0-31.0); Mean Corpuscular Volume 96.3 fl (78.0-98.0); Mean Platelet Volume 7.8 fL (7.4-10.4); Platelet Count 177 10x3/uL (130-400); RBC Distribution Width 12.4 % (11.5-14.5); Red Blood Cell (RBC) Count 3.26 mill/uL (4.20-5.40); White Blood Cell (WBC) Count 6.3 10x3/uL (4.8-10.8)
[2022-05-22 04:20] LABS: Anion Gap 13 mmol/L (10-20); BUN (Urea Nitrogen) 28 mg/dL (9.8-20.1); Calc. Creatinine Clearance 20 mL/min (70-130); Carbon Dioxide 22 mmol/L (23-31); Chloride 107 mmol/L (98-107); Estimated GFR 26; Glucose 207 mg/dL (83-110); Potassium 4.3 mmol/L (3.5-5.1); Sodium 138 mmol/L (136-145)
[2022-05-22] MEDS: Levothyroxine Sodium 88 MCG TAB PO SCH (05:52)
[2022-05-22] MEDS ORDERED: Carvedilol 6.25 MG TAB PO SCH (08:41)
[2022-05-22] MEDS ORDERED: Atorvastatin Calcium 10 MG TAB PO SCH (08:44)
[2022-05-22] MEDS ORDERED: Carvedilol 25 MG TAB PO SCH (09:00)
[2022-05-22] MEDS ORDERED: Alogliptin 6.25 MG TAB PO SCH (09:00)
[2022-05-22] MEDS ORDERED: sitaGLIPtin Phosphate 25 MG TAB PO SCH (09:00)
[2022-05-22] MEDS: Digoxin 0.125 MG TAB PO SCH (09:33)
[2022-05-22] MEDS: Ferrous Gluconate 324 MG TAB PO SCH (09:34)
[2022-05-22] MEDS: Acetaminophen 325 MG TAB PO PRN (09:34)
[2022-05-22] MEDS: Aspirin 81 mg Enteric Coated Tablet PO SCH (09:35)
[2022-05-22] MEDS: Empagliflozin 10 MG TAB PO SCH (09:35)
[2022-05-22] MEDS: Icosapent Ethyl 1 GM CAPSULE PO SCH (09:35)
[2022-05-22] MEDS ORDERED: ISOSORBIDE DINITRATE PO SCH ×2 (10:00→15:00)
[2022-05-22] MEDS ORDERED: HYDRALAZINE HCL PO SCH ×2 (10:00→15:00)
[2022-05-22] MEDS: ISOSORBIDE DINITRATE PO SCH (10:21)
[2022-05-22] MEDS: HYDRALAZINE HCL PO SCH (10:21)
[2022-05-22] MEDS: HumaLOG 300 UNITS/3 ML VIAL SC PRN (11:47)
[2022-05-22 11:55] VITALS: TEMP 97.7
[2022-05-22 12:07] VITALS: BP 137/60
[2022-05-22] MEDS ORDERED: Atorvastatin Calcium 40 MG TAB PO SCH (21:00)
[2022-05-23] MEDS ORDERED: Glimepiride 2 MG TAB PO SCH (08:00)
== END 2022-05-22 15:30 | disposition home or self-care (01) | DRG 552 ==
LOC: ERS 18:51 → 2NO 21:45 → ERHOLD 22:01 → 2NO 05-20 16:14 → OBSVTOIN 05-21 13:26
PROVIDERS: ADMIT Internal Medicine; ATTEND Internal Medicine
DX: M48.02 Spinal stenosis, cervical region (principal); I16.1 Hypertensive emergency; M84.421A Pathological fracture, right humerus, initial encounter for fracture; I50.22 Chronic systolic (congestive) heart failure; I42.8 Other cardiomyopathies; I13.0 Hypertensive heart and chronic kidney disease with heart failure and stage 1 through stage 4 chronic kidney disease, or unspecified chronic kidney disease; Z20.822 Contact with and (suspected) exposure to COVID-19; K74.60 Unspecified cirrhosis of liver; E11.22 Type 2 diabetes mellitus with diabetic chronic kidney disease; N18.9 Chronic kidney disease, unspecified; M19.021 Primary osteoarthritis, right elbow; I34.0 Nonrheumatic mitral (valve) insufficiency; I25.10 Atherosclerotic heart disease of native coronary artery without angina pectoris; R77.8 Other specified abnormalities of plasma proteins; M47.812 Spondylosis without myelopathy or radiculopathy, cervical region; Z79.899 Other long term (current) drug therapy; Z79.82 Long term (current) use of aspirin; Z79.890 Hormone replacement therapy; Z98.49 Cataract extraction status, unspecified eye; Z95.810 Presence of automatic (implantable) cardiac defibrillator
CPT/HCPCS: 36415; 36416; 70450; 71045; 72125; 80048; 80053; 80061; 81003; 81015; 82553; 83036; 84443; 84484; 85025; 93005; 93306; 93880; 94760; 96374; G0378; J0360; J1815; U0003; U0005